=== PATIENT | male | born 1980 | race Caucasian/White ===

== ENCOUNTER 2018-04-04 13:25 | Emergency (ER) | payer OTHER, SELFPAY ==
[2018-04-04 13:25] VITALS: BP 145/91; PULSE 85; RESP 22; TEMP 36.1; O2SAT 98; BMI 24.3
--- NOTE | 2018-04-04 13:57 | DI.RAD.S_ITS ---
PROCEDURE: XR CHEST 1V INDICATIONS: chest pain TECHNIQUE: One view of the chest was acquired. COMPARISON: None. FINDINGS: Surgical changes and devices: None. Lungs and pleura: Nonspecific mild interstitial prominence within the perihilar regions is slightly more prominent on the right. There is no focal consolidation. No effusion or pneumothorax is identified. Mediastinum: Mediastinal contours appear normal. Heart size is normal. Bones and chest wall: No suspicious bony lesions. Overlying soft tissues appear unremarkable. IMPRESSION: Mild perihilar interstitial prominence may be within normal limits. Mild pulmonary edema edema may also have this appearance. No convincing pneumonia is evident. Dictated by: Elpidio Michaels M.D. on 04/04/2018 at 13:37 Approved by: Elpidio Michaels M.D. on 04/04/2018 at 13:41
--- NOTE | 2018-04-04 14:02 | PC.NURSE ---
approx 1 hours of cp, began while seated today after got some bad news, also dizziness/heart racing, pt reports similar episode many years ago r/t afib for which he reports he was cardioverted, NSR on monitor, reports pain mildly improved since arriving to ED, denies fever/chills/cough/soa/numbness/tingling or other sx, amb ind, recent flight of approx 3 hours
[2018-04-04 14:06] LABS: Add Manual Diff / Slide Review NO; Basophils Percent Auto 0.4 % (0-2); Eosinophils Percent Auto 2.1 % (2-4); Hematocrit 46.3 % (41-53); Hemoglobin 16.1 g/dL (13.5-17.5); Lymphocytes Percent Auto 42.8 % (25-40); Mean Corpuscular HGB Conc 34.7 % (30-36); Mean Corpuscular Hemoglobin 28.2 PG (26-34); Mean Corpuscular Volume 81.2 fL (80-100); Monocytes Percent Auto 11.9 % (3-14); Neutrophils Absolute Auto 3500 /uL (3000-5900); Neutrophils Percent Auto 42.8 % (50-75); Platelet Count 297 X10^3/uL (150-400); Red Blood Cell Count 5.71 X10^6/uL (4.5-5.9); Red Cell Distribution Width 13.5 % (11.6-14.8); White Blood Cell Count 8.1 X10^3/uL (4.5-11.0)
[2018-04-04 14:12] LABS: Alanine Aminotransferase 44 IU/L (21-72); Albumin Globulin Ratio 1.6 (1.0-2.8); Alkaline Phosphatase 65 U/L (38-126); Aspartate Aminotransferase 33 IU/L (17-59); BUN Creatinine Ratio 18.8 (6-22); Bilirubin Total 0.8 mg/dL (0.2-1.3); Blood Urea Nitrogen 15 mg/dL (9-20); Calcium 10.2 mg/dL (8.4-10.2); Carbon Dioxide 21 mmol/L (22-32); Chloride 105 mmol/L (98-107); Creatine Kinase 145 U/L (55-170); Estimated Glomerular Filt Rate > 60.0 mL/min (>60); Globulin 3.2 g/dL (1.7-4.1); Glucose 109 mg/dL (70-100); HEMOLYSIS 27 (0-50); Lipase 152 U/L (23-300); Potassium 3.4 mmol/L (3.4-5.1); Sodium 141 mmol/L (137-145); Total Protein 8.2 g/dL (6.3-8.2)
[2018-04-04 14:27] LABS: CKMB % Relative Index 2.1 % (1.5-5.0); Creatine Kinase MB 3.02 ng/mL (<2.37)
[2018-04-04 14:30] VITALS: BP 117/75; PULSE 89; RESP 15; O2SAT 95
[2018-04-04 14:34] LABS: Troponin I < 0.012 ng/mL (0.01-0.034)
[2018-04-04 14:56] LABS: D Dimer < 200 ng/mL (<230)
[2018-04-04 16:00] VITALS: BP 128/81; PULSE 77; RESP 15; O2SAT 100
[2018-04-04 16:29] LABS: Troponin I < 0.012 ng/mL (0.01-0.034)
[2018-04-04 16:30] VITALS: BP 130/71; PULSE 73; RESP 18; O2SAT 100
--- NOTE | 2018-04-04 16:51 | ED.CHESTPAIN ---
HPI - Chest Pain General Chief Complaint: Chest Pain Stated Complaint: HX OF AFIB, CHEST PAIN, NUMBNESS, SOB Time Seen by Provider: 04/04/18 13:56 History of Present Illness HPI narrative: HPI 37 y/o male with a history of atrial fibrillation ~2 years ago s/p cardioversion without recurrence presents for evaluation of rapid onset severe chest pain that radiated towards his back and was followed by rapid heavy breathing, perioral paresthesias, and carpopedal spasms that resolved over 20 minutes. Symptoms occurred in the setting of a significant emotional stressor (patient unwilling to elaborate). Patient notes minimum symptomatology at the present time. Patient was unable to identify any provoking or relieving factors at the time of his event. Patient denies recent immobilization, leg trauma, estrogen use, surgery in the last four weeks, hemoptysis, or malignancy in the last 6 months. M/S/F/SocHx notable for: please see HPI; remainder reviewed with patient and in chart. ROS: Negative constitutional, eye, cardiovascular, pulmonary, GI, , MSK, skin, neurologic, psychiatric, endocrine unless noted in the HPI. Exam HR 85, BP 145/91, RR 22, T 97.0, SaO2 98% on room air. Gen: Pleasant, non-toxic appearing, resting comfortably. HEENT: NC, AT, PEERL, EOMI. Resp: Clear to auscultation bilaterally, normal work of breathing. Card: RRR with no M/R/G, no crackles in lung bases, no pedal edema, no JVD appreciated. GI: NT/ND Vascular: Both ankles, calves, and thighs of equal size, no calf tenderness to palpation bilaterally. MSK: No chest wall TTP. No visible deformities, strength and tone WNL. Skin: Normal color with no visible lesions. Neuro: AO x 3, no facial asymmetry, vision and hearing WNL. Psych: Mood and affect appropriate. Labs / Imaging (pertinent): WBC 8.1, Hb 16.1, Na 141, K 3.4, lipase 152. Troponin (1:45 PM) <0.012, troponin (3:51 PM) <0.012 d-dimer <200 EKG: SR at 80 bpm, no VA segment depressions, no new ST segment changes, new LBBB, or T-wave changes that would suggest acute ischemia. CXR: mild perihilar interstitial prominence may be within normal limits. Mild pulmonary edema may also have this appearance. No convincing pneumonia is evident.. MDM Previous chart, nursing note, and vitals reviewed. A: 37 y/o male with a history of atrial fibrillation ~2 years ago s/p cardioversion without recurrence presents for evaluation of rapid onset severe chest pain that radiated towards his back and was followed by rapid heavy breathing, perioral paresthesias, and carpopedal spasms that resolved over 20 minutes. DDx and Evaluation: * ACS - doubt ACS given a non-ischemic EKG and negative serial troponins. * UA - unlikely given the atypical history and alternate diagnosis. HEART score 0 (Hx - 0, EKG - 0, age - 0, risk factors - 0, troponin - 0; 30 day MACE: less than or equal to 1.7%). * Pericarditis - consider pericarditis unlikely given the lack of VA segment depressions as well as the absence of diffuse ST-segment elevations, lack of reduction of pain when supine, and lack of a friction rub. * Myocarditis - unlikely given the negative troponin and an EKG without characteristic VA-segment or ST-segment changes. * Dissection - dissection is unlikely given symptoms, low pretest probability with a negative d-dimer, and lack of mediastinal widening. * PE - low pretest probability, Wells' (Signs & Sx of DVT - 0, PE is #1 or equally likelihood - 0, HR > 100 - 0, immobilization of >=3 days or surgery in last 28 days - 0, prior DVT or PE - 0, hemoptysis - 0, malignancy w/ tx in last 6 mo or palliative - 0) 0; as such the patient's negative d-dimer is appropriate for PE rule out/risk stratification. * Mediastinal Air - no evidence by CXR or auscultation. * Pneumothorax - no evidence by CXR or physical exam. * MSK - doubt given lack of reproducibility on exam. * Endocarditis - no identifiable risk factors, patient afebrile, no new murmurs appreciated on exam; doubt. * GI (Esophageal rupture, GERD) - esophageal rupture effectively excluded given the lack of mediastinal widening, non-toxic appearance, and lack of identifiable risk factors. While not definitively excluded, further evaluation of GERD is deferred to an outpatient setting. * Anxiety - given overall symptom description, prompt resolution, and preceding stressor suspect that the patient's symptoms may be due to a stress response. ED Course: Vital signs remained stable and within clinically acceptable limits. Disposition: Discharge with PCP follow up. Return to care precautions given verbally and in writing. Impression: Chest Pain. (please reference below for remainder of encounter information) Related Data Home Medications Medication Instructions Recorded Confirmed gabapentin 300 mg PO BID 04/04/18 04/04/18 Allergies Allergy/AdvReac Type Severity Reaction Status Date / Time No Known Drug Allergies Allergy Verified 04/04/18 13:57 [facility] Social History Smoking Status: Never smoker Exam Initial Vital Signs Initial Vital Signs: Vital Signs Temperature 97.0 F L 04/04/18 13:25 Pulse Rate 85 04/04/18 13:25 Respiratory Rate 22 04/04/18 13:25 Blood Pressure 145/91 H 04/04/18 13:25 Pulse Oximetry 98 04/04/18 13:25 Course Orders Ordered: ED Orders 04/04/18 13:45 Complete Blood Count AUTO DIFF Stat Comprehensive Metabolic Panel Stat D Dimer Stat Lipase Stat Troponin & CK Cardiac Panel Stat 04/04/18 13:57 XR chest 1V Stat 04/04/18 15:51 Troponin I Stat Vital Signs - 8 hr 04/04/18 13:25 04/04/18 14:30 04/04/18 16:00 Temperature 97.0 F L Pulse Rate 85 89 77 Respiratory Rate 22 15 15 Blood Pressure 145/91 H Blood Pressure [Left Arm] 117/75 128/81 H Pulse Oximetry 98 95 100 MDM - Chest Pain Lab Data Result diagrams: 04/04/18 13:45 04/04/18 13:45 Lab Results 04/04/18 04/04/18 04/04/18 Range/Units 13:45 13:45 13:45 WBC 8.1 (4.5-11.0) X10^3/uL RBC 5.71 (4.5-5.9) X10^6/uL Hgb 16.1 (13.5-17.5) g/dL Hct 46.3 (41-53) % MCV 81.2 (80-100) fL MCH 28.2 (26-34) PG MCHC 34.7 (30-36) % RDW 13.5 (11.6-14.8) % Plt Count 297 (150-400) X10^3/uL Neut % (Auto) 42.8 L (50-75) % Lymph % (Auto) 42.8 H (25-40) % [place] % (Auto) 11.9 (3-14) % Eos % (Auto) 2.1 (2-4) % Baso % (Auto) 0.4 (0-2) % Neut # (Auto) 3500 (7712-9928) /uL D-Dimer < 200 (<230) ng/mL Sodium 141 (137-145) mmol/L Potassium 3.4 (3.4-5.1) mmol/L Chloride 105 (98-107) mmol/L Carbon Dioxide 21 L (22-32) mmol/L BUN 15 (9-20) mg/dL Creatinine 0.80 (0.66-1.25) mg/dL Estimated GFR > 60.0 (>60) mL/min BUN/Creatinine Ratio 18.8 (6-22) Glucose 109 H (70-100) mg/dL Calcium 10.2 (8.4-10.2) mg/dL Total Bilirubin 0.8 (0.2-1.3) mg/dL AST 33 (17-59) IU/L ALT 44 (21-72) IU/L Alkaline Phosphatase 65 (38-126) U/L Total Creatine Kinase 145 (55-170) U/L CK-MB (CK-2) 3.02 H (<2.37) ng/mL CK-MB (CK-2) Rel Index 2.1 (1.5-5.0) % Troponin I < 0.012 (0.01-0.034) ng/mL Total Protein 8.2 (6.3-8.2) g/dL Albumin 5.0 (3.5-5.0) g/dL Globulin 3.2 (1.7-4.1) g/dL Albumin/Globulin Ratio 1.6 (1.0-2.8) Lipase 152 (23-300) U/L 04/04/18 Range/Units 15:51 WBC (4.5-11.0) X10^3/uL RBC (4.5-5.9) X10^6/uL Hgb (13.5-17.5) g/dL Hct (41-53) % MCV (80-100) fL MCH (26-34) PG MCHC (30-36) % RDW (11.6-14.8) % Plt Count (150-400) X10^3/uL Neut % (Auto) (50-75) % Lymph % (Auto) (25-40) % [place] % (Auto) (3-14) % Eos % (Auto) (2-4) % Baso % (Auto) (0-2) % Neut # (Auto) (1526-5276) /uL D-Dimer (<230) ng/mL Sodium (137-145) mmol/L Potassium (3.4-5.1) mmol/L Chloride (98-107) mmol/L Carbon Dioxide (22-32) mmol/L BUN (9-20) mg/dL Creatinine (0.66-1.25) mg/dL Estimated GFR (>60) mL/min BUN/Creatinine Ratio (6-22) Glucose (70-100) mg/dL Calcium (8.4-10.2) mg/dL Total Bilirubin (0.2-1.3) mg/dL AST (17-59) IU/L ALT (21-72) IU/L Alkaline Phosphatase (38-126) U/L Total Creatine Kinase (55-170) U/L CK-MB (CK-2) (<2.37) ng/mL CK-MB (CK-2) Rel Index (1.5-5.0) % Troponin I < 0.012 (0.01-0.034) ng/mL Total Protein (6.3-8.2) g/dL Albumin (3.5-5.0) g/dL Globulin (1.7-4.1) g/dL Albumin/Globulin Ratio (1.0-2.8) Lipase (23-300) U/L Discharge Plan Departure Prescriptions: No Action gabapentin 300 mg capsule 300 mg PO BID RF: 0
[2018-04-04 17:11] VITALS: BP 126/70
== END 2018-04-04 17:11 | disposition home or self-care (01) ==
PROVIDERS: Emergency Provider Emergency Medicine
DX: R07.89 Other chest pain (principal)
CPT/HCPCS: 36591; 71045; 80053; 82550; 82553; 83690; 84484; 85025; 85379; 93005; 93010; 99283; 99285

== ENCOUNTER 2018-04-19 23:47 | Emergency (ER) | payer OTHER, SELFPAY ==
[2018-04-20] VITALS: BP 143/87; PULSE 107; RESP 18; O2SAT 97; BMI 25.0
--- NOTE | 2018-04-20 01:10 | ED.ANXIETY ---
HPI - Anxiety General Chief Complaint: Anxiety Stated Complaint: anxiety, panic attack medication issue Time Seen by Provider: 04/20/18 01:10 Source: patient Mode of arrival: ambulatory Limitations: no limitations History of Present Illness HPI narrative: Patient states he has been feeling anxious, and he is out of his medication. complaint: anxiety Onset (ago): day(s) ( Three) Symptoms: extremity numbness/tingling, sense of impending doom and other ( no dyspnea, chest pain, palpitations) Severity: moderate Quality: constant Place: home History of similar episodes: Yes Provoking factors: none known Relieving factors: nothing Exacerbating factors: nothing Associated symptoms: denies other symptoms and other ( patient complains of chest tightness but not pain. He was just seen recently for the same , and worked up with labs and EKG.) Related Data Home Medications Medication Instructions Recorded Confirmed gabapentin 300 mg PO BID 04/04/18 04/04/18 Previous Rx's Medication Instructions Recorded diazepam 5 mg PO BID-QID PRN #20 tab 04/20/18 Allergies Allergy/AdvReac Type Severity Reaction Status Date / Time No Known Drug Allergies Allergy Verified 04/04/18 13:57 Review of Systems Review of Systems All systems reviewed & are unremarkable except as noted in HPI and below Constitutional Denies chills, Denies fever(s), Denies lethargy and Denies weakness Eyes Denies change in vision, Denies eye discharge, Denies irritation and Denies loss of vision ENT Ears, Nose, Mouth, and Throat: Denies change in voice, Denies neck pain and Denies sore throat Cardiovascular Denies chest pain, Denies irregular heart rhythm, Denies lightheadedness, Denies palpitations, Denies dyspnea, Denies dyspnea on exertion and Denies orthopnea Respiratory Denies cough, Denies dyspnea, Denies dyspnea on exertion and Denies wheezing Gastrointestinal Gastrointestinal: Denies abdominal pain, Denies change in bowel habits, Denies diarrhea, Denies nausea and Denies vomiting Genitourinary Denies hematuria, Denies flank pain, Denies urinary incontinence and Denies urinary urgency Musculoskeletal Denies neck pain Integumentary/Breasts Denies pruritus, Denies erythema, Denies rash and Denies wounds Neurologic Denies confusion, Denies loss of vision and Denies weakness Psychiatric Reports anxiety, Denies confusion, Denies depression, Denies homicidal ideation and Denies suicidal ideation Endocrine Denies palpitations Hematologic/Lymphatic Denies easy bruising Allergic/Immunologic Denies wheezing PFSH Medical History Acute anxiety (Acute) Surgical History No pertinent past surgical history (Acute) Social History Smoking Status: Never smoker Exam Initial Vital Signs Initial Vital Signs: Vital Signs Pulse Rate 107 H 04/20/18 00:00 Respiratory Rate 18 04/20/18 00:00 Blood Pressure 143/87 H 04/20/18 00:00 Pulse Oximetry 97 04/20/18 00:00 Const General: cooperative and well developed Nutritional Appearance: well nourished Orientation: alert, awake, oriented x3 and not confused HENMT Head: normocephalic and atraumatic Ears: external ears normal Nose: external nose normal and No nasal discharge Face and sinus: face symmetric and No dry mucous membranes Mouth: oral mucosae normal and moist mucous membranes Eyes General: appearance normal, both eyes and all related structures Eyelids: eyelids normal Conjunctivae: conjunctivae normal Sclera: sclerae normal Pupils: PERRL EOM: EOM intact bilaterally Neck Neck: normal visual inspection, trachea midline, No lymphadenopathy, No midline deformity and No JVD Lymphatic: No lymphedema Chest Chest: normal inspection of the chest Resp Effort & Inspection: normal respiratory effort, able to speak in complete sentences, no respiratory distress and no use of accessory muscles Auscultation: clear to auscultation bilaterally, no rales, no rhonchi and no wheezes Cardio Rate: regular rate Rhythm: regular rhythm Heart Sounds: no click, no gallops, no murmurs and no rubs Pulses: normal peripheral pulses GI Inspection: non-distended Palpation: soft, No guarding, No pulsatile mass and No tender Back/Spine/Pelvis Back: No CVA tenderness Cervical Spine: cervical ROM normal and No pain with cervical ROM Thoracic/Lumbar Spine: thoracic and lumbar spine normal to inspection Skin General: no rashes or lesions noted, No jaundice and No petechiae Neuro General: alert, oriented x3, gait normal and no focal motor deficits Speech: speech normal Extrem General: full ROM, no clubbing, cyanosis or edema, no pedal edema and no calf tenderness Psych Appearance: well kempt Mental Status: mental status grossly normal Mood: anxious mood Attitude: cooperative Thought Content: normal and suicidality Judgment: judgment good Course Hospital Course: Patient was given a refill of his Valium. He was advised to follow up with his primary care physician, as he will not be able to continue to get his anxiety medications in the emergency department. Patient expresses understanding. Patient is low risk for coronary artery disease or PE, and had a recent negative workup in the emergency department and I do not feel this needs to be repeated. Orders Ordered: Discontinued Medications Diazepam (Valium) 5 mg PO NOW ONE Stop: 04/20/18 02:08 Last Admin: 04/20/18 02:36 Dose: 5 mg Vital Signs - 8 hr 04/20/18 00:00 Pulse Rate 107 H Respiratory Rate 18 Blood Pressure 143/87 H Pulse Oximetry 97 MDM - Anxiety Medical Records Attestation: I reviewed the patient's medical records. Discharge Plan Departure Patient Disposition: Home Clinical Impression: Acute anxiety Discharge Date/Time: 04/20/18 03:50 Interventions: ED Discharge Assessment Last Done: 04/20/18 03:50 Instructions: Anxiety and Panic Attacks (Alternative Therapy), DI for Anxiety -- Adult Prescriptions: New diazepam 5 mg tablet 5 mg PO BID-QID PRN (Reason: anxiety) Qty: 20 RF: 0 No Action gabapentin 300 mg capsule 300 mg PO BID RF: 0 Referrals: [facility] [Provider Group] ( Please follow up within for a week to establish care.) [facility] [Outside] ( Please be seen for an intake as soon as possible.)
[2018-04-20] MEDS: diazePAM 5 MG TABLET PO (02:36)
[2018-04-20 03:50] VITALS: BP 127/77; PULSE 87; RESP 18; O2SAT 100
== END 2018-04-20 03:50 | disposition home or self-care (01) ==
PROVIDERS: Emergency Provider Emergency Medicine
DX: R41.9 Unspecified symptoms and signs involving cognitive functions and awareness (principal)
CPT/HCPCS: 99282; 99283

== ENCOUNTER 2018-06-19 03:22 | Emergency (ER) | payer OTHER, SELFPAY ==
[2018-06-19] VITALS (25 sets, daily range): BP systolic 101–158; BP diastolic 55–98; PULSE 56–153; RESP 12–20; TEMP 36.7; O2SAT 92–100; BMI 25.0
--- NOTE | 2018-06-19 03:24 | ED_ITS ---
Addendum entered and electronically signed by Fatimah Silva D.O. 06/19/18 08: 09: I talked at length with both and in regards to risks and benefits of anticoagulation. His a specialist in [place] who is supposed to see this week. Strongly recommended that he talk to him about the Xarelto. For now is recommended that he take at least for the next 72 hr. His job is fighting wild fires there may be more harm being on Xarelto he is young and healthy. We did discuss 81 mg aspirin as an alternative. But strongly recommended follow up Original Note: HPI - Arrhythmia/Palpitations <Loco Merrill DO - Last Filed: 06/19/18 18:05> General Chief Complaint: Arrhythmia/Palpitations Stated Complaint: IRREGULAR HEART BEAT HISTORY OF AFIB Time Seen by Provider: 06/19/18 03:23 Source: patient Mode of arrival: ambulatory Limitations: no limitations History of Present Illness HPI narrative: patient is a 37-year-old male here for evaluation of palpitations. Patient states that it started approximately 1 hr prior to arrival here in the emergency department. He states that he was lying in bed watching TV at the time. States that it felt like a palpitation that just would not go away. He does have a history of atrial fibrillation. This was a couple years ago. He was cardioverted at that time. States he had a fairly extensive workup afterwards and was told that the 1st episode of AFib was secondary to stress. Has not had any episodes since then. Related Data Home Medications Medication Instructions Recorded Confirmed gabapentin 300 mg PO BID 04/04/18 04/04/18 Previous Rx's Medication Instructions Recorded diazepam 5 mg PO BID-QID PRN #20 tab 04/20/18 rivaroxaban [Xarelto] 20 mg PO DAILY #28 tab 06/19/18 Allergies Allergy/AdvReac Type Severity Reaction Status Date / Time gabapentin Allergy Verified 06/19/18 03:33 Review of Systems <DO Tg Koch Last Filed: 06/19/18 18:05> Constitutional Denies fatigue and Denies headache(s) ENT Ears, Nose, Mouth, and Throat: Denies headache(s) Cardiovascular Denies chest pain, Reports rapid heart rate, Denies edema, Denies leg edema, Reports palpitations and Denies dyspnea Respiratory Denies dyspnea Gastrointestinal Gastrointestinal: Denies abdominal pain, Denies nausea and Denies vomiting Musculoskeletal Denies myalgias and Denies arthralgias Integumentary/Breasts Denies lesions and Denies rash Neurologic Denies headache(s) Endocrine Denies fatigue and Reports palpitations Hematologic/Lymphatic Denies easy bleeding and Denies easy bruising Exam <Loco Merrill DO - Last Filed: 06/19/18 18:05> Initial Vital Signs Initial Vital Signs: Vital Signs Temperature 98.1 F 06/19/18 03:31 Pulse Rate 153 H 06/19/18 03:31 Respiratory Rate 16 06/19/18 03:31 Blood Pressure 158/91 H 06/19/18 03:31 Pulse Oximetry 99 06/19/18 03:31 Const General: cooperative, healthy appearing, comfortable, well developed, well groomed and No acute distress Orientation: alert, awake and oriented x3 HENMT Head: normal to inspection and normocephalic Chest Chest: normal inspection of the chest Resp Effort & Inspection: normal respiratory effort Auscultation: clear to auscultation bilaterally Cardio Rate: tachycardic Rhythm: abnormal rhythm irregularly irregular Pulses: radial pulses present GI Inspection: non-distended Palpation: soft, No firm and No tender Skin Lesions: no lesions Rashes: no rashes Neuro General: alert, awake and oriented x3 Cognition: normal cognition Speech: speech normal Gait: normal gait Extrem General: normal to inspection, capillary refill normal and No edema Psych Appearance: grossly normal and well kempt <Fatimah Silva DO - Last Filed: 06/19/18 08:09> Initial Vital Signs Initial Vital Signs: Vital Signs Temperature 98.1 F 06/19/18 03:31 Pulse Rate 153 H 06/19/18 03:31 Respiratory Rate 16 06/19/18 03:31 Blood Pressure 158/91 H 06/19/18 03:31 Pulse Oximetry 99 06/19/18 03:31 Procedures <Loco Merrill DO - Last Filed: 06/19/18 18:05> Cardioversion Indication: AFib with RVR Stability: Stable ASA Class: I Mallampati Airway Classification: Class I Preparation: social science manager applied, pulse oximeter, capnometry used and supplemental O2 applied Fentanyl: IV Fentanyl Dose: 10 Midazolam: IV Midazolam Dose: 6 Joules used: 120 ED Sedation Level: Moderate (Concious) Cardiac rhythm post-cardioversion: sinus rhythm Patient tolerated procedure sedation: Well and No complications Complications sedation: none Procedural Sedation Patient Age: Patient is 5yrs or older Indication: other ( cardioversion) ASA Class: I Mallampati Airway Classification: Class I Time of Last PO Intake: 05:00 Preparation: social science manager applied, pulse oximeter, capnometry used, supplemental O2 applied and suction/airway equipment at bedside Fentanyl: IV Fentanyl dose (mcg): 10 Midazolam: IV Midazolam dose (mg): 6 ED Sedation Level: Moderate (Concious) Patient Tolerated Procedure: Well and No complications Complications: none Course <Loco Merrill DO - Last Filed: 06/19/18 18:05> Orders Ordered: Discontinued Medications Diltiazem HCl (Cardizem) 20 mg IV NOW ONE Stop: 06/19/18 04:06 Last Admin: 06/19/18 04:12 Dose: 20 mg Fentanyl (Sublimaze) 100 mcg IV NOW ONE Stop: 06/19/18 04:50 Last Admin: 06/19/18 05:17 Dose: 100 mcg Sodium Chloride (Normal Saline 0.9%) 1,000 mls @ 1,000 mls/hr IV BOLUS ONE Stop: 06/19/18 05:04 Last Infusion: 06/19/18 05:45 Dose: 0 mls/hr Admin: 06/19/18 04:12 Dose: 1,000 mls/hr Midazolam HCl (Versed) 5 mg IV NOW ONE Stop: 06/19/18 04:50 Last Admin: 06/19/18 05:15 Dose: 5 mg Midazolam HCl (Versed) 1 mg IV NOW ONE Stop: 06/19/18 05:39 Last Admin: 06/19/18 05:27 Dose: 1 mg Ondansetron HCl (Zofran Odt) 4 mg PO NOW ONE Stop: 06/19/18 08:23 Last Admin: 06/19/18 08:18 Dose: 4 mg Ondansetron HCl (Zofran Odt Prepack) 1 bottle MISC SEEINSTR ONE Stop: 06/19/18 08:36 Last Admin: 06/19/18 08:36 Dose: 1 bottle Vital Signs - 8 hr 06/19/18 10:30 06/19/18 12:00 06/19/18 13:15 Pulse Rate 77 86 83 Respiratory Rate Blood Pressure [Left Arm] 143/96 H 137/79 155/79 H Pulse Oximetry 96 96 06/19/18 14:13 Pulse Rate 82 Respiratory Rate 17 Blood Pressure [Left Arm] 137/66 Pulse Oximetry 95 <Fatimah Silva DO - Last Filed: 06/19/18 08:09> Orders Ordered: Discontinued Medications Diltiazem HCl (Cardizem) 20 mg IV NOW ONE Stop: 06/19/18 04:06 Last Admin: 06/19/18 04:12 Dose: 20 mg Fentanyl (Sublimaze) 100 mcg IV NOW ONE Stop: 06/19/18 04:50 Last Admin: 06/19/18 05:17 Dose: 100 mcg Sodium Chloride (Normal Saline 0.9%) 1,000 mls @ 1,000 mls/hr IV BOLUS ONE Stop: 06/19/18 05:04 Last Infusion: 06/19/18 05:45 Dose: 0 mls/hr Admin: 06/19/18 04:12 Dose: 1,000 mls/hr Midazolam HCl (Versed) 5 mg IV NOW ONE Stop: 06/19/18 04:50 Last Admin: 06/19/18 05:15 Dose: 5 mg Midazolam HCl (Versed) 1 mg IV NOW ONE Stop: 06/19/18 05:39 Last Admin: 06/19/18 05:27 Dose: 1 mg Ondansetron HCl (Zofran Odt) 4 mg PO NOW ONE Stop: 06/19/18 08:23 Last Admin: 06/19/18 08:18 Dose: 4 mg Ondansetron HCl (Zofran Odt Prepack) 1 bottle MISC SEEINSTR ONE Stop: 06/19/18 08:36 Last Admin: 06/19/18 08:36 Dose: 1 bottle Vital Signs - 8 hr 06/19/18 10:30 06/19/18 12:00 06/19/18 13:15 Pulse Rate 77 86 83 Respiratory Rate Blood Pressure [Left Arm] 143/96 H 137/79 155/79 H Pulse Oximetry 96 96 06/19/18 14:13 Pulse Rate 82 Respiratory Rate 17 Blood Pressure [Left Arm] 137/66 Pulse Oximetry 95 MDM - Arrhythmia/Palpitations <Loco Merrill DO - Last Filed: 06/19/18 18:05> Medical Records Attestation: I reviewed the patient's medical records. Lab Data Attestation: I reviewed the patient's lab results. Result diagrams: 06/19/18 03:35 06/19/18 03:35 Lab Results 06/19/18 06/19/18 Range/Units 03:35 03:35 WBC 10.1 (4.5-11.0) X10^3/uL RBC 5.73 (4.5-5.9) X10^6/uL Hgb 16.2 (13.5-17.5) g/dL Hct 47.3 (41-53) % MCV 82.6 (80-100) fL MCH 28.4 (26-34) PG MCHC 34.3 (30-36) % RDW 13.8 (11.6-14.8) % Plt Count 310 (150-400) X10^3/uL Neut % (Auto) 37.8 L (50-75) % Lymph % (Auto) 48.8 H (25-40) % Duval % (Auto) 10.5 (3-14) % Eos % (Auto) 2.4 (2-4) % Baso % (Auto) 0.5 (0-2) % Neut # (Auto) 3800 (5448-2129) /uL Sodium 144 (137-145) mmol/L Potassium 3.8 (3.4-5.1) mmol/L Chloride 103 (98-107) mmol/L Carbon Dioxide 25 (22-32) mmol/L BUN 18 (9-20) mg/dL Creatinine 0.90 (0.66-1.25) mg/dL Estimated GFR > 60.0 (>60) mL/min BUN/Creatinine Ratio 20.0 (6-22) Glucose 109 H (70-100) mg/dL Calcium 9.5 (8.4-10.2) mg/dL ECG Data Attestation: I personally reviewed and interpreted this ECG as follows: Prior ECG tracings: not available for review Interpretation: atrial fibrillation ventricular rate of 169 normal QRS normal QTC nonspecific ST T wave changes post cardioversion EKG time 0534 hr Sinus rhythm ventricular rate 87 normal axis Normal intervals Normal QRS no ST T wave changes MDM Narrative Medical decision making narrative: After an extensive discussion initially with the patient regarding his options to include rate control versus rhythm control the patient opted to try 1 dose of rate control medications to see if it decreased his heart rate enough to convert on its own. He was given 20 mg of Cardizem which did bring his heart rate down to the 90s to 100's however the patient was still in atrial fibrillation. I then gave the patient the options to start on a beta-ruth and anticoagulation and have him follow up with his primary doctor and a electrical engineering intern. I did inform him that he could potentially and cardiovert on his own in the next couple days. I also gave him the option of being cardioverted here in the emergency department. again after an extensive discussion of the risks and benefits of both of these options the patient did opt to be cardioverted here in the emergency department. Patient was very skeptical goal of doing this because he stated that the last time he was cardioverted he was given propofol however woke up during the middle the procedure in remembered in felt the entire cardioversion. I did give the patient quite a bit of Versed and fentanyl because of his extreme anxiety of the procedure to ensure that he did not remember the procedure. He was cardioverted on the 1st attempt with 120 joules. Repeat EKG did show sinus rhythm. Patient is stable afterwards. Care turned over to day provider at change of shift to re-evaluate the patient once he recovers from the sedation. I also discussed with the patient starting him on anticoagulation for the next 4 weeks. <Fatimah Silva, - Last Filed: 06/19/18 08:09> Lab Data Lab Results 06/19/18 06/19/18 Range/Units 03:35 03:35 WBC 10.1 (4.5-11.0) X10^3/uL RBC 5.73 (4.5-5.9) X10^6/uL Hgb 16.2 (13.5-17.5) g/dL Hct 47.3 (41-53) % MCV 82.6 (80-100) fL MCH 28.4 (26-34) PG MCHC 34.3 (30-36) % RDW 13.8 (11.6-14.8) % Plt Count 310 (150-400) X10^3/uL Neut % (Auto) 37.8 L (50-75) % Lymph % (Auto) 48.8 H (25-40) % Duval % (Auto) 10.5 (3-14) % Eos % (Auto) 2.4 (2-4) % Baso % (Auto) 0.5 (0-2) % Neut # (Auto) 3800 (0000-1833) /uL Sodium 144 (137-145) mmol/L Potassium 3.8 (3.4-5.1) mmol/L Chloride 103 (98-107) mmol/L Carbon Dioxide 25 (22-32) mmol/L BUN 18 (9-20) mg/dL Creatinine 0.90 (0.66-1.25) mg/dL Estimated GFR > 60.0 (>60) mL/min BUN/Creatinine Ratio 20.0 (6-22) Glucose 109 H (70-100) mg/dL Calcium 9.5 (8.4-10.2) mg/dL MDM Narrative Medical decision making narrative: I received sign-out from Dr. Merrill. Seen and evaluated patient myself. He is arousable but sleepy but talkative and appropriate. Feels ready and able to go home. Discharge Plan Departure Patient Disposition: Home Clinical Impression: Atrial fibrillation Discharge Date/Time: 06/19/18 08:38 Interventions: ED Discharge Assessment Last Done: 06/19/18 08:17 Instructions: DI for Atrial Fibrillation Activity Restrictions/Additional Instructions: recommend taking the Xarelto for the next 4 weeks as directed. I recommend that you find a primary care doctor in the local area to manage your medical conditions. There is a possibility that despite our interventions today that the atrial fibrillation does return. If this happens return to the emergency department for further evaluation. Prescriptions: New rivaroxaban [Xarelto] 20 mg tablet 20 mg PO DAILY Qty: 28 RF: 0 No Action gabapentin 300 mg capsule 300 mg PO BID RF: 0 diazepam 5 mg tablet 5 mg PO BID-QID PRN (Reason: anxiety) Qty: 20 RF: 0
[2018-06-19 04:12] LABS: Add Manual Diff / Slide Review NO; Basophils Percent Auto 0.5 % (0-2); Eosinophils Percent Auto 2.4 % (2-4); Hematocrit 47.3 % (41-53); Hemoglobin 16.2 g/dL (13.5-17.5); Lymphocytes Percent Auto 48.8 % (25-40); Mean Corpuscular HGB Conc 34.3 % (30-36); Mean Corpuscular Hemoglobin 28.4 PG (26-34); Mean Corpuscular Volume 82.6 fL (80-100); Monocytes Percent Auto 10.5 % (3-14); Neutrophils Absolute Auto 3800 /uL (3000-5900); Neutrophils Percent Auto 37.8 % (50-75); Platelet Count 310 X10^3/uL (150-400); Red Blood Cell Count 5.73 X10^6/uL (4.5-5.9); Red Cell Distribution Width 13.8 % (11.6-14.8); White Blood Cell Count 10.1 X10^3/uL (4.5-11.0)
[2018-06-19] MEDS: SODIUM CHLORIDE 0.9% 1,000 ML 1000 ML IV (04:12)
[2018-06-19] MEDS: dilTIAZem 5 MG/ML SDV 20 MG IV (04:12)
[2018-06-19 04:16] LABS: Chloride 103 mmol/L (98-107)
[2018-06-19 04:19] LABS: Blood Urea Nitrogen 18 mg/dL (9-20); Calcium 9.5 mg/dL (8.4-10.2); Carbon Dioxide 25 mmol/L (22-32); Estimated Glomerular Filt Rate > 60.0 mL/min (>60); Glucose 109 mg/dL (70-100); HEMOLYSIS 29 (0-50); Potassium 3.8 mmol/L (3.4-5.1); Sodium 144 mmol/L (137-145)
--- NOTE | 2018-06-19 04:26 | PC.NURSE ---
Post Cardizem bolus. Provider at bedside discussing further options.
--- NOTE | 2018-06-19 04:28 | PC.NURSE ---
Pt appears to be very anxious. when attached to monitor pt was staring at monitor obsessing over heartrate. Pt stated he is very anxious, he has to go to [place] for work injury treatment, has to move his family to another house and has 4 kids at home. Pt states his anxiety might have been what caused a previous episode of afib.
[2018-06-19] MEDS: MIDAZOLAM 5 MG/ML VIAL IV (05:15)
[2018-06-19] MEDS: fentaNYL 100 MCG/2 ML INJ IV (05:17)
[2018-06-19] MEDS: MIDAZOLAM 2 MG/2 ML VIAL 1 MG IV (05:27)
[2018-06-19] MEDS: ONDANSETRON 4 MG ODT PO (08:18)
--- NOTE | 2018-06-19 08:18 | PC.NURSE ---
back on stretcher, medicated for comfort. improved with supine position.
--- NOTE | 2018-06-19 08:28 | PC.NURSE ---
skin improved with supine position, dry pink and warm
[2018-06-19] MEDS: ONDANSETRON 4 MG ODT PREPACK 1 BOTTLE MISC (08:36)
--- NOTE | 2018-06-19 08:39 | CM.MNRNOTE ---
improved, requested zofran prepack. dr oviedo made aware.
== END 2018-06-19 08:38 | disposition home or self-care (01) ==
PROVIDERS: Emergency Medicine; Emergency Provider Emergency Medicine
DX: I48.91 Unspecified atrial fibrillation (principal)
CPT/HCPCS: 80048; 85025; 92960; 93005; 94770; 96361; 96374; 96375; 99152; 99285; J2250; J3010